=== PATIENT | female | born 1990 | race Caucasian/White ===

== ENCOUNTER 2017-06-21 23:56 | Emergency (ER) | END 2017-06-22 05:00 | disposition home or self-care (01) ==

== ENCOUNTER 2018-10-02 01:56 | Emergency (ER) | payer OTHER ==
[~2018-10-02] VITALS: Ht 154.9 cm; Wt 45.8 kg
[~2018-10-02 01:56] MED LIST: CEPH-443 PO; IBUP-1542 PO; IBUP-1561 PO; LOPE2CAP PO; NO MEDS; PREN-46 PO; TERB30CR22 TOP
[2018-10-02 02:00] VITALS: Ht 154.9 cm; Wt 45.8 kg
[2018-10-02 02:53] VITALS: BP 126/88; PULSE 106; RESP 20
[2018-10-02] MEDS ORDERED: IBUPROFEN 200 MG TAB PO ONE (03:00)
== END 2018-10-02 02:54 | disposition home or self-care (01) ==
LOC: E/R 01:56
DX: S09.90XA Unspecified injury of head, initial encounter (principal); R40.2142 Coma scale, eyes open, spontaneous, at arrival to emergency department; R40.2362 Coma scale, best motor response, obeys commands, at arrival to emergency department; R40.2252 Coma scale, best verbal response, oriented, at arrival to emergency department; B35.6 Tinea cruris; F17.210 Nicotine dependence, cigarettes, uncomplicated; Y04.8XXA Assault by other bodily force, initial encounter
CPT/HCPCS: Z7502; Z7610; 99283